=== PATIENT | female | born 1985 | race Two or more races ===

== ENCOUNTER 2025-03-03 02:55 | Emergency (ER) | payer MEDICAID ==
[~2025-03-03] VITALS: Ht 167.6 cm; Wt 88.0 kg
--- NOTE | 2025-03-03 03:30 | Physician Documentation ---
History of Present Illness ~ Chief Complaint: Blood in Urine Stated Complaint: ABD PAIN/BLOOD IN URINE Time Seen by MD: 03:27 HPI This is a 39-year-old female with a prior history of urinary tract infections who presents for evaluation of sudden onset unprovoked left flank pain wrapping around into left lower quadrant, sharp, moderate to severe in its intensity, that woke her from sleep earlier today few hours prior to arrival. She urinated and noticed some blood in urine. This feels different from urinary tract infections. Reports nausea without vomiting. Denies any fever or chills. Denies any concerns for tobacco, alcohol or illicit substances use Medication Reconciliation Allergies: Coded Allergies: No Known Allergies (Unverified , 03/03/25) Review of Systems ROS 10 point review of systems was performed and unless noted above in HPI is negative for acute process/complaint. Physical Exam Vital Signs: Temperature: 98.5, Source: Temporal, Heart Rate: 86, Respiratory Rate: 16, BP: 126/82, Pulse Oximetry: 97, Weight: 88.000 Physical Exam GENERAL: Awake, alert, oriented, GCS 15, no apparent distress, non-toxic appearing, answers questions, follows commands appropriately. Examined in triage HEENT: Atraumatic, normocephalic, pupils equal, extraocular muscles intact, sclerae anicteric, mucus membranes moist, oropharynx is clear, no stridor. NECK: supple, full active range of motion, trachea midline, no thyromegaly, no lymphadenopathy, no JVD. CARDIOVASCULAR: regular rate/rhythm, no murmurs/gallops/rubs, Pulses are 2+ in all extremities and symmetric. Capillary refill less than 2 seconds. PULMONARY: Nonlabored, good air movement ,no respiratory distress, speaking in full sentences, clear to auscultation bilaterally, no wheezing, no ronchi, no rales, no accessory muscle use. GASTROINTESTINAL: Soft, non-tender, non-distended, normal active bowel sounds, no organomegaly, no pulsatile masses, no CVA tenderness. NEUROLOGIC: Lucid with normal mental status. Normal facial symmetry. Moves all extremities symmetrically and with purpose. No truncal ataxia. Speech is fluid without evidence of dysarthria or aphasia, no focal deficits appreciated. MUSCULOSKELETAL: There is full range of motion of all extremities. There is no joint pain or joint swelling or joint erythema. There is no muscle pain or tenderness or swelling. EXTREMITIES: warm, well-perfused, no cyanosis, no clubbing, no edema, no acute deformities. Skin: warm, dry, no rashes or lesions, no jaundice, no petechiae orpurpura. No ecchymosis. PSYCHIATRIC: Normal affect, normal insight, normal concentration. Focused exam: [] Progress Results/Orders Results/Orders Orders - SHAQ CALDERON DO Urinalysis, Cult If Indicated (03/03/25 03:04) Hcg, Ur Ql (03/03/25 03:04) Cbc/Diff (03/03/25 03:04) BMP (03/03/25 03:04) Lipase (03/03/25 03:04) CMP (03/03/25 03:04) Vital Signs 03/03/25 03:05 Temp 98.5 Pulse 86 Resp 16 B/P (MAP) 126/82 Pulse Ox 97 Laboratory Tests Test 03/03/25 03:10 03/03/25 03:15 Urine Comment CBC Comment Chemistry Comments Medical Decision Making Additional information obtaine: N/A Findings Facility Status: ED Holds, REPLACED BY [facility] process The plan was discussed with the patient, who demonstrates clear understanding of the plan and is in agreement with the plan unless otherwise noted in the chart. All questions have been answered, all concerns were addressed unless otherwise documented. I was available throughout their ED stay for frequent reassessment and questions. Differential Diagnoses (considered and possible or likely): [Differential diagnosis considered includes renal colic, acute appendicitis, acute cholecystitis, pancreatitis, gastritis, PUD, diverticulitis, mesenteric ischemia, abdominal aortic aneurysm, bowel obstruction, enteritis, colitis, fecal impaction, volvulus, IBS, inflammatory bowel disease, specific food intolerance, peritonitis, perforated viscous, malignancy, UTI, abscess, and abdominal pain NOS. Pelvic source of pain was also considered including endometritis, dysmenorrhea, ovarian cyst, ovarian torsion, PID, TOA, cervicitis, vaginitis, or uterine fibroid. History, physical exam, and workup exclude many of the more serious causes listed above. ] ??Differential Diagnoses (considered and unlikely, not requiring evaluation currently): [See above] MDM Data Please see HPI for the following: Independent Historians and external Records Review. Historian: [Patient] Independent Historians: ?[Record review] Medication Management: [Reviewed medication list] Social History and determinants: [Reviewed] Please see the body of the note for the following: Any independent interpretations of ECG, imaging studies. All vitals signs/haemodynamics, ordered tests were independently reviewed and interpreted by myself. Nursing triage complaint and vitals reviewed, additional nursing notes were reviewed as available and I agree unless otherwise noted or documented in contradiction in the chart Vital Signs: Independently reviewed Labs: Independently interpreted Imaging: Independently interpreted Old Medical Records: Independently reviewed, see HPI for relevant summary and information Pulse Oximetry: [99%] interpreted as [normal on room air] by me Additionally notably showing: [] Tests considered but not ordered include: [Ultrasound has been considerably but CT appears to be better visualization modality] Social Determinants of Health Impact: Patient was evaluated in [facility], [facility] [place] to healthcare due to below par ratio of patient to medical providers. [] Comorbid Conditions Impacting Present Evaluation and Care/Treatment: [History of UTIs] Management Discussions with other Healthcare Providers: [] Treatment and Disposition Medication Management (Given or considered): []. See EMR for details Consideration for Hospitalization/Escalation/Deescalation of Care: Admission for observation has been considered, [however the patient is able to tolerate p.o., their symptoms are controlled, they are able to rely on oral medications, and their chief complaint/diagnosis can be managed on outpatient basis.] ?ED Course:?[] ?Shared decision making:?[] Code status:?FULL Please see the full Electronic Medical Record for full details of nursing documentation, medications list, other records of complete past medical history and conditions, vital signs, laboratory studies, and any radiologic study interpretations by radiologists. Portions of this note were completed using [employer] dictation software and as a result there may exist minor errors in spe lling. I have reviewed elements of past family and social history and agree as included in note. Urinary Diff Dx:Considerations: Include: Other (See body of the main note for differential diagnosis) Genital Diff Dx:Considerations: Unlikely: Other Departure Referrals: NO PRIMARY CARE PROVIDER (PCP) Signature Scribe Signature: No scribe Attestation: The note accurately reflects work and decisions made by me.Shaq Calderon DO 03/03/25 03:30 SHAQ CALDERON DO Mar 03, 2025 03:30
[2025-03-03 03:34] LABS: LEUKOCYTE ESTERASE ,URINE SMALL (Neg); OCCULT BLOOD,URINE MODERATE (Neg)
[2025-03-03 03:37] LABS: URINE HCG POSITIVE (NEG)
[2025-03-03 03:38] LABS: MEAN PLATELET VOLUME 7.5 FL (7.4-10.4); RED CELL DISTRIBUTION WIDTH 16.0 % (11.5-14.5)
[2025-03-03 03:41] LABS: UA COLLECTION TYPE NON-SPECIFIED
[2025-03-03 03:42] LABS: NITRITES, URINE NEGATIVE (Neg)
[2025-03-03 03:43] LABS: CREATININE 0.87 MG/DL (0.40-0.90); TOTAL CARBON DIOXIDE 27.4 MMOL/L (24-32); eCRCL 82 ML/MIN; eGFR 73 ML/MIN
[2025-03-03 03:44] LABS: SQUAMOUS EPITHELIAL CELL,UR MANY /LPF (FEW)
[2025-03-03 04:03] LABS: PLATELET ESTIMATE NORMAL
[2025-03-03] MEDS ORDERED: iohexol 300mg/ml 100ml inj. ONE (04:05)
--- NOTE | 2025-03-03 06:05 | Physician Documentation ---
Addendum Received patient in sign out from outgoing ED physician, Dr. Manjarrez. Please see their note (and other providers) for further specific details regarding initial encounter. HPI/Course In Brief: This 39-year-old female presented with left lower quadrant pain. She has a positive test. T3C7-4-7-0 ED COURSE: HCG quantitative 123. Ultrasound does not reveal an intrauterine sac but this would be consistent with a quantitative HCG suggesting about two weeks gestatio n. The patient underwent MRI of the abdomen and pelvis with a concern for left lower quadrant pain. Fortunately, these were reassuring and effectively ruled out diverticulitis, appendicitis, surgical abdomen. I did explain to the patient that she has a threatened miscarriage and she understood this. I have asked her to get a repeat HCG in 3-4 days and establish care. If she is unable to get into a clinic or obtain an HCG with her PCP I advised her to return to the emergency department. I also asked her to come back to the emergency department earlier if she develops increased bleeding, passes clots or has severe cramping. She understands and agrees with this. I Informed the patient of: 1. Nature of abnormal findings 2. Implications of the findings 3. Possible consequences of not receiving additional diagnosis and/or treatment, or following the current treatment plan. 4. Explanation of management options and provision of appropriate referral resources as indicated 5. Their responsibility to receive follow-up care Discussed harm reduction to this emergency department visit today. Patient expresses understanding and agrees to plan. All questions answered to the best of my ability. Discharged in stable condition with strict ED return precautions and close outpatient follow-up with primary care. EMR and Dragon Attestation - this medical document was created using an electronic medical record system with [employer] dictation system. Although this document has been carefully reviewed, there may still be some phonetic and typographical errors. These errors are purely typographical, due to imperfections of the software programs, and do not reflect any compromise in the patient's medical care. Note to Patients: Physician notes are written for the purpose of communication between medical providers and billing purposes. There may be aspects of this documentation that are simplified for efficiency and clarity. Physician notes are not intended to capture the entirety of your experience in the hospital. If you have questions about the way your medical condition and care was documented, please do not hesitate to bring this up at your next visit with your physician. Departure Disposition: HOME / SELF CARE / HOMELESS Impression: Primary Impression: Threatened miscarriage in early Condition: Stable Additional Instructions: As we discussed, you are in early (1-2 weeks). Unfortunately, the bleeding you are having may represent a threatened miscarriage. Please return to the emergency department for increased bleeding, passing clots or tissue or severe cramping. In the meantime, it is important to establish care. Continue taking vitamins. You may take ibuprofen for cramping, as necessary. Also, return here if you develop any new or unusual symptoms. CESARIO VERDUGO MD Mar 03, 2025 06:05
[2025-03-03 06:10] VITALS: TEMP 98
--- NOTE | 2025-03-03 09:34 | RADIOLOGY REPORT ---
PROCEDURE: US US OB 03/03/2025 07:40 AM INDICATION: LLQ pain, (+) preg test. Last menstrual period 02/16/2025 COMPARISON: None TECHNIQUE: Sonographic evaluation of the gravid uterus utilizing a transabdominal probe. FINDINGS: Uterus measures 8.6 x 3.7 x 2.4 cm. No intrauterine gestational sac is seen. Right ovary measures 5 by 3.7 x 2.4 cm with a cyst measuring 1.5cm. left ovary measures 5 x 2.8 x 2.5 cm. without mass No free fluid IMPRESSION: 1. No gestational sac is identified on this exam. Please correlate with quantitative beta HCG levels and repeat exam in 2 weeks if indicated
[2025-03-03 10:02] LABS: LEUKOCYTE ESTERASE ,URINE NEGATIVE (Neg); NITRITES, URINE NEGATIVE (Neg); OCCULT BLOOD,URINE LARGE (Neg)
[2025-03-03 10:12] LABS: UA COLLECTION TYPE CLN CATCH MIDSTREAM
[2025-03-03 10:18] LABS: MUCUS STRANDS NONE SEEN /LPF (Neg)
[2025-03-03 10:19] LABS: SQUAMOUS EPITHELIAL CELL,UR FEW /LPF (FEW)
--- NOTE | 2025-03-03 14:54 | RADIOLOGY REPORT ---
EXAM: MR MRI ABDOMEN HISTORY: Early , left lower quadrant pain, hematuria, stone, diverticulitis COMPARISON: None TECHNIQUE: Multiplanar, multisequence imaging of the abdomen was performed with and without contrast. FINDINGS: [LOWER CHEST]: No pleural effusion. [LIVER]:Hepatomegaly measuring up to 24 cm craniocaudal. [SPLEEN]:Normal caliber of the spleen. [PANCREAS]:The pancreas is normal in appearance without focal lesions. Normal pancreatic duct size. [GALLBLADDER AND DUCTS]:Gallbladder is normal in appearance. The cystic duct, right and left hepatic ducts, common hepatic duct, and common bile ducts are unremarkable. [ADRENAL GLANDS]:Unremarkable. [KIDNEYS]:Normal enhancement without suspicious lesions or no hydronephrosis. [VISUALIZED BOWEL]:The appearance of normal appendix in the right lower quadrant. Grossly unremarkable. [VASCULATURE]:Unremarkable. [LYMPHADENOPATHY]:No evidence for lymphadenopathy. [ASCITES]:No intraperitoneal ascites. [MUSCULOSKELETAL]:Bone marrow signal is normal. [OTHER]:None IMPRESSION: 1. No MR evidence of acute cholecystitis. 2. No MR evidence of choledocholithiasis. 3. No hydronephrosis. 4. Hepatomegaly.
--- NOTE | 2025-03-03 15:22 | RADIOLOGY REPORT ---
EXAM: MR MRI PELVIS HISTORY: Hematuria, LLQ pain, ureterolithiasis, diverticulitis COMPARISON: None TECHNIQUE: Multiplanar, multisequence imaging of the pelvis for genitourinary evaluation was performed without contrast. FINDINGS: REPRODUCTIVE:Multiple right ovarian cysts with overall size of the right ovary measuring 4 cm in dominant right ovarian cysts measuring 2.5 cm. Normal endometrial stripe. Normal junctional zone measuring less than 10 mm. Normal size of the uterus. BLADDER:Bladder is normal. Normal enhancement without suspicious lesions or hydronephrosis. VISUALIZED BOWEL:No visualized diverticulitis or appendicitis. Grossly unremarkable. VASCULATURE:Unremarkable. LYMPHADENOPATHY:No evidence for lymphadenopathy. ASCITES:Trace pelvic ascites. MUSCULOSKELETAL:Bone marrow signal is normal. OTHER:None IMPRESSION: 1. No evidence of diverticulitis or appendicitis. 2. Normal appearance of the bladder. 3. Multiple right ovarian cysts with overall size of the right ovary measuring 4 cm. 4. Recently passed stone is not excluded however no definitive secondary imaging findings such as dilated distal ureters.
[2025-03-03 18:09] VITALS: BP 132/86; PULSE 92; RESP 18; O2SAT 99
== END 2025-03-03 17:19 | disposition home or self-care (01) ==
LOC: ER 02:59
DX: O20.0 Threatened abortion (principal); Z3A.00 Weeks of gestation of pregnancy not specified; Z87.440 Personal history of urinary (tract) infections
CPT/HCPCS: 36415; 72195; 74181; 76801; 80053; 81001; 81025; 83690; 84702; 85008; 85025; 99285; Q9967; 76802